=== PATIENT | male | born 2005 ===

== ENCOUNTER 2024-02-29 21:31 | Emergency (ER) | payer BC, SELFPAY ==
[2024-02-29] VITALS (12 sets, daily range): BP systolic 117–144; BP diastolic 66–98; BMI 19.4
--- NOTE | 2024-02-29 23:06 | ED.GENMED ---
History of Present Illness
<Manjeet Enamorado DO - Last Filed: 02/29/24 23:11>
General
Chief Complaint: Musculo-Skeletal Complaint
Time Seen by Provider: 02/29/24 22:04
<Roger Smith PA-C - Last Filed: 03/01/24 00:08>
General
Source: patient
History of Present Illness
History of Present Illness:
18-year-old male presenting to the emergency department for evaluation after injuring his left shoulder while snowboarding noting deformity and inability to move the left shoulder. Patient was wearing a helmet at the time of injury. Denies any
headaches. Also denying any weakness or numbness to the left upper extremity. No other extremity related complaints.
Past History
<Roger Smith PA-C - Last Filed: 03/01/24 00:08>
Past History
ED Past Medical History: None
ED Past Surgical History: Orthopedic
Social History
Tobacco: Non-smoker
Alcohol: None
Drug: None
Personal: Single
Living: with family
Employment: Student
Review of Systems
<Roger Smith PA-C - Last Filed: 03/01/24 00:08>
Review of Systems
All Other Systems: ROS reviewed and negative except as documented in HPI and ROS
Phy Exam
<Roger Smith PA-C - Last Filed: 03/01/24 00:08>
Physical Exam
Physical Exam:
GENERAL: Alert , in no apparent distress
EYE: conjunctiva clear
Head: Normocephalic atraumatic
NECK: Supple,
ENT: mmm.
LUNGS: no acute respiratory distress
NEUROLOGICAL: Alert and oriented
SKIN: Warm and dry, skin intact.
MUSCULOSKELETAL: Deformity to the left shoulder noted. Patient has intact and equal radial pulses. Sensation grossly intact to the left upper extremity. Remainder of extremity is without any signs of trauma or tenderness
PSYCH: Normal and appropriate interaction.
Scores
<Roger Smith PA-C - Last Filed: 03/01/24 00:08>
Heart Failure Risk
Heart Failure Risk Score: Not Applicable
Heart Score for Chest Pain Patients
STEMI patient?: Not applicable
Withdrawal Assessment of Alcohol
Withdrawal Assessment Completed?: Not applicable
Course
<Manjeet Enamorado DO - Last Filed: 02/29/24 23:11>
Orders/Labs/Results
Orders:
Orders
02/29/24 21:35
Shoulder, Left, Trauma CR [CR Shoulder, Trauma - Left] Urgent
Comment:
Reason For Exam: FELL SNOWBOARDING
02/29/24 22:40
Propofol [Diprivan] 20 ml .ROUTE .STK-MED
02/29/24 22:41
Ketorolac [Toradol] 30 mg .ROUTE .STK-MED ONE
Ketorolac [Toradol] 30 mg IV NOW STA
02/29/24 23:07
CR Shoulder - Left 1 View Urgent
Reason For Exam: left shoulder reduction
02/29/24 23:33
Sling Left-Treatment ONCE
Vital Signs
Initial and Last Documented VS:
Initial Vital Signs
Temp Pulse BP Pulse Ox
99.0 F 90 144/98 100
02/29/24 21:39 02/29/24 21:39 02/29/24 21:39 02/29/24 21:39
Last Documented Vital Signs
Temp Pulse Resp BP Pulse Ox
98.3 F 80 22 137/77 97
02/29/24 23:09 02/29/24 23:10 02/29/24 23:10 02/29/24 23:10 02/29/24 23:10
<Roger Smith PA-C - Last Filed: 03/01/24 00:08>
Orders/Labs/Results
Orders:
Orders
02/29/24 21:35
Shoulder, Left, Trauma CR [CR Shoulder, Trauma - Left] Urgent
Comment:
Reason For Exam: FELL SNOWBOARDING
02/29/24 22:40
Propofol [Diprivan] 20 ml .ROUTE .STK-MED
02/29/24 22:41
Ketorolac [Toradol] 30 mg .ROUTE .STK-MED ONE
Ketorolac [Toradol] 30 mg IV NOW STA
02/29/24 23:07
CR Shoulder - Left 1 View Urgent
Reason For Exam: left shoulder reduction
02/29/24 23:33
Sling Left-Treatment ONCE
Vital Signs
Initial and Last Documented VS:
Initial Vital Signs
Temp Pulse BP Pulse Ox
99.0 F 90 144/98 100
02/29/24 21:39 02/29/24 21:39 02/29/24 21:39 02/29/24 21:39
Last Documented Vital Signs
Temp Pulse Resp BP Pulse Ox
98.3 F 80 22 137/77 97
02/29/24 23:09 02/29/24 23:10 02/29/24 23:10 02/29/24 23:10 02/29/24 23:10
Procedures
<Manjeet Enamorado, - Last Filed: 02/29/24 23:11>
Moderate Sedation
ASA Risk Score: Class I
Chart and allergies reviewed: Yes
Consent for anesthesia obtained: Yes
Time out completed (validating right patient & procedure): Yes
Moderate Sedation Start Time(when first medication is given): 22:54
History of difficult intubation: No
Airway free of obstruction: Yes
Patient has a gag reflex: Yes
Patient is able to open mouth: Yes
Patient has no dentures: Yes
Patient has no loose teeth: Yes
Medication administered by Provider during Moderate Sedation: IV Propofol (mg)
Total dose administered: 200
Time drug administered: 22:54
Moderate Sedation Procedure End Time: 23:05
Comment: Time out at 2253
Joint/Fracture Reduction
Left Anterior Proximal Shoulder:
Indication for procedure:: Left shoulder dislocation
Procedure completed by: Louis Smith PA-C
Consent form signed: Yes
Joint reduced: with anesthesia sedation
Injury was: closed
Further treatement: needs further treatment
Post reduction exam: stable
Capillary Refill: normal
Peripheral Pulses: radial (left): 2+
<Roger Smith PA-C - Last Filed: 03/01/24 00:08>
MDM/Problems Addressed
Differential Diagnosis Includes:
Fracture, dislocation, sprain, clavicle injury
MDM/Problems Addressed:
18-year-old male presenting to the emergency department for evaluation of left shoulder injury following a snowboarding accident. X-ray ordered from triage shows a left shoulder dislocation with suspect clavicular AC joint separation as well. Left
shoulder reduced as above without any complications. Reduction film obtained which confirms suspicion for AC joint separation as well but successful reduction. Patient placed in a sling. Information for orthopedics provided. Stable for discharge
and outpatient management.
<Roger Smith PA-C - Last Filed: 03/01/24 00:08>
*Radiology
Radiology exam reviewed: preliminary read by ED provider (Left shoulder dislocation and AC joint separation)
*Pulse Oximetry
Patient hypoxic: no
*Critical Care Note
Total Time (30-74mins, 75-104mins- exclusive of procedures): Not Applicable
ED Attending Note
<Manjeet Enamorado DO - Last Filed: 02/29/24 23:11>
ED Attending Note
Patient seen and examined by attending physician: Yes
I performed the substantive portion of visit, reviewed & personally made and approve the management plan that is documented in note by myself or JOHNATHON.: Yes
ED Attending Note:
I have seen and evaluated the patient with a [id number] encounter. I have spoken to the advance practicer provider and involved in the medical history, the physical exam, medical decision making.
Evaluation and management service: agree unless noted differently below.
Results interpretation: agree unless noted differently below.
Focused HPI: 18-year-old male presenting with left shoulder injury. Patient fell while snowboarding. He denies head trauma
Physical exam: Step-off noted to left shoulder. Distal extremity neurovascular intact
Medical Decision Making: Patient tolerated moderate sedation well and the shoulder was reduced easily. There is a concern for AC joint tear. Patient placed in shoulder immobilizer and discussed follow-up with Ortho
-
Portions of this chart may have been created with voice recognition software.� Occasional wrong word or��sound alike� substitutions may have occurred due to the inherent limitations of voice recognition software.
Discharge Plan
Departure
Patient Disposition: Home (Routine Discharge)
Date of Disposition: 02/29/24
Time of Disposition: 23:33
Patient with high blood pressure during this ER visit?: Yes
Discharge Problem:
Closed dislocation of left shoulder, Sprain of left acromioclavicular joint
Instructions: Shoulder Dislocation, Shoulder Dislocation (DC), MODERATE SEDATION ADULT
Referrals:
Kelvin Tripp MD [Active] - (Ortho - Please call for appointment)
NONE,* [Family Provider] -
Stand Alone Forms: Return to Work
Interventions
Interventions:
*Risk Screen - Suicide Last Done: 02/29/24 21:34
*General Assessment Last Done: 02/29/24 23:06
*Neglect/Abuse Screening Last Done: 02/29/24 21:34
*ED COVID-19 Vaccine History Last Done: 02/29/24 23:06
*Nursing Disposition Last Done: 02/29/24 23:47
ED-Musculoskeletal Assessment Last Done: 02/29/24 22:15
Discharge Date and Time
Discharge Date/Time: 02/29/24 23:47
Print Language: CHINESE
[2024-02-29] MEDS: TORADOL 30 MG IV (23:08)
== END 2024-02-29 23:47 | disposition home or self-care (01) ==
LOC: EMR 21:31
PROVIDERS: EMERGENCY PHYSICIAN Student in an Organized Health Care Education/Training Program
DX: S43.005A Unspecified dislocation of left shoulder joint, initial encounter (principal); S43.52XA Sprain of left acromioclavicular joint, initial encounter; V00.311A Fall from snowboard, initial encounter; Y93.23 Activity, snow (alpine) (downhill) skiing, snowboarding, sledding, tobogganing and snow tubing
CPT/HCPCS: 99283; 23650; 96374; 99152; 73020; 73030